=== PATIENT | male | born 1975 | race Caucasian/White ===

== ENCOUNTER 2021-02-22 09:05 | Emergency (ER) | payer SELFPAY ==
[~2021-02-22] VITALS: Ht 165.1 cm; Wt 61.2 kg
[2021-02-22 09:10] VITALS: BP_SYST 143
--- NOTE | 2021-02-22 09:10 | NUR ---
Placed in room 3 . Placed on lead teacher, blood pressure machine and pulse oximeter. To gown for exam. Side rails up.
--- NOTE | 2021-02-22 09:20 | NUR ---
ER DR. OLSON AT THE BEDSIDE EXAMINING PT
[2021-02-22] MEDS ORDERED: LORazepam 1 MG TABLET PO ONE (09:30)
--- NOTE | 2021-02-22 09:35 | NUR ---
PT BIBA AFTER BEING FOUND WANDERING IN THE STREET. PT HAS A HX OF CHRONIC ALCOHOLISM, PRESENTS DISHEVELED, MALODEROUS, TREMULOUS. PT REPORT DRINKING 24 HOURS AGO, HOWEVER IS A POOR HISTORIAN UPON ARRIVAL. V/S ROZINA, [id number].
--- NOTE | 2021-02-22 10:30 | NUR ---
PT SLEEPING IN GURNEY, NO DISTRESS, V/S STABLE
[2021-02-22] MEDS ORDERED: LORA-259 PO (11:08)
--- NOTE | 2021-02-22 11:29 | NUR ---
PT SLEEPING IN GURNEY, NO DISTRESS, V/S STABLE
--- NOTE | 2021-02-22 12:22 | NUR ---
CALL MADE FOR CASE MANAGEMENT FOR CONSULT TO D/C
[2021-02-22 14:56] VITALS: BP_SYST 141
--- NOTE | 2021-02-22 14:57 | NUR ---
Patient given written and verbal discharge instructions and verbalizes understanding. Given copies of tests performed during visit. Patient is awake, alert and oriented. Ambulatory with steady gait. Refuses offer of [facility] placement. Given list of available shelters in surrounding areas.
--- NOTE | 2021-02-22 14:57 | NUR ---
Patient given written and verbal discharge instructions and verbalizes understanding. ER MD discussed with patient the results and treatment provided. Patient in stable condition. ID arm band removed. Rx of ATIVAN given. Patient educated on pain management and to follow up with PMD. Pain Scale 0/10. Opportunity for questions provided and answered. Medication side effect fact sheet provided.
== END 2021-02-22 14:56 | disposition home or self-care (01) ==
LOC: SED 09:05
DX: F10.229 Alcohol dependence with intoxication, unspecified (principal); Z79.899 Other long term (current) drug therapy; Y90.9 Presence of alcohol in blood, level not specified
CPT/HCPCS: 99285